=== PATIENT | female | born 1990 | race Asian ===

== ENCOUNTER 2024-04-23 14:08 | Emergency (ER) | payer OTHER, SELFPAY ==
[2024-04-23 14:11] VITALS: BP 109/75
[2024-04-23 14:33] LABS: Urine Albumin Negative (Neg - Trace); Urine Bilirubin Negative (Negative); Urine Character Clear (Clear); Urine Color Yellow; Urine Glucose Negative (Negative); Urine Ketone Negative (Negative); Urine Leukocyte Negative (Negative); Urine Nitrite Negative (Negative); Urine Occult Blood Negative (Negative); Urine Urobilinogen Negative (Neg - 1+)
[2024-04-23 14:41] LABS: Hematocrit 33.7 % (37.0-47.0); Hemoglobin 10.8 g/dL (12.0-16.0); Mean Corpuscular Hgb 25.1 pg (27.0-31.0); Mean Corpuscular Volume 78.2 fL (81.0-99.0); Mean Platelet Volume 11.3 fL (7.4-10.4); Platelet Count 234 10^3/uL (130-400); Red Blood Cell Count 4.31 10^6/uL (4.20-5.40); Red Cell Dist. Width 17.2 % (11.5-14.5); White Blood Cell Count 8.7 10^3/uL (4.8-10.8)
[2024-04-23 14:44] LABS: HCG, Serum Qualitative Screen Negative
[2024-04-23 14:58] LABS: Eosinophils 1 % (0-6); Lymphocytes 43 % (20-51); Monocytes 7 % (2-9); Segmented Neutrophils 36 % (42-75)
[2024-04-23 14:59] LABS: Atypical Lymphocytes 13 %; Normal RBC Morphology Yes; Platelets Checked Yes; Total Cells Counted 100
[2024-04-23 15:03] LABS: ALT (SGPT) 61 U/L (0-35); AST (SGOT) 79 U/L (14-36); Albumin 4.1 g/dl (3.5-5.0); Alkaline Phosphatase 76 U/L (38-126); Blood Urea Nitrogen 6 mg/dl (7-17); Calcium 9.9 mg/dl (8.4-10.2); Carbon Dioxide 26 mmol/L (22-30); Chloride 104 mmol/L (98-107); Glucose 130 mg/dl (70-99); Potassium 4.1 mmol/L (3.5-5.1); Sodium 137 mmol/L (135-145); Total Bilirubin 0.6 mg/dl (0.2-1.3); Total Protein 7.5 g/dl (6.3-8.2); eGFR > 60.00
--- NOTE | 2024-04-23 16:07 | ED.GENMED ---
History of Present Illness
<Kalyn Parker PA-C - Last Filed: 04/23/24 21:34>
General
Chief Complaint: Weakness
Source: patient
Time Seen by Provider: 04/23/24 15:46
History of Present Illness
History of Present Illness:
33yoF with a history of anemia presenting for evaluation of multiple complaints. Patient reports ongoing headaches x 6 weeks. She has a history of headaches but it does not typically last this long. Additionally, patient reports lightheadedness and
shortness of breath primarily with exertion. She is very fatigued despite sleeping 10 hours a night. She also states that her heart seems to race with activity and her heart rate can go up to the 110s with minimal exertion. Patient has been seen
by her PCP for these symptoms. She was sent for lab work last week and was told that her iron was low. She was referred to hematology for iron infusions but was unable to get an appointment until 5 weeks from now. Of note, patient recently
traveled to the [facility] about 2 weeks ago.
Past History
<Kalyn Parker PA-C - Last Filed: 04/23/24 21:34>
Past History
ED Past Medical History: Asthma and Other (Fertility treatment)
Social History
Tobacco: Non-smoker
Alcohol: None
Personal:
Living: with family
Phy Exam
<Kalyn Parker PA-C - Last Filed: 04/23/24 21:34>
General Physical Exam
General Presentation: well appearing and no apparent distress
General age: appears stated age
General Skin: warm and dry
General Habitus: normal
General Mental: alert
Cardiovascular Exam
Cardiovascular Exam: regular rate/rhythm, no edema and no murmur
Pulmonary Exam
Pulmonary Exam: lungs clear, no respiratory distress, no crackles and no wheezing
Jacky Coma Scale
Eye Opening: Spontaneous
Verbal Response: Oriented
Motor Response: Obeys Commands
GCS Total Score: 15
Skin Exam
Skin Exam: normal color and warm/dry
Psychiatric Exam
Psychiatric Exam: normal mood/affect
<Daniel Enrique DO - Last Filed: 04/23/24 21:23>
[place] Coma Scale
GCS Total Score: 15
Course
<Kalyn Parker PA-C - Last Filed: 04/23/24 21:34>
Orders/Labs/Results
Orders:
Orders
04/23/24 14:13
Test Result ONCE
04/23/24 14:17
Complete Blood Count/With Diff Urgent
Comprehensive Metabolic Panel Urgent
HCG, Serum Qualitative Screen Urgent
Comment: Notify provider if positive test present
Hepatitis A IgM Antibody Urgent
Comment: ADD ON
Hepatitis B Core Ab, IgM Urgent
Comment: ADD ON
Hepatitis B Surface Antibody Urgent
Comment: ADD ON
Hepatitis B Surface Antigen Urgent
Comment: ADD ON
Hepatitis C Antibody Urgent
Comment: ADD ON
Manual Differential Urgent
TSH Urgent
Comment: TSH ADDED ON BY FLOOR 4:18P 04-23-24
04/23/24 14:21
Urinalysis Reflex To Culture Urgent
Date Specimen was Collected: 04/23/24
Time Specimen was Collected: 14:13
04/23/24 16:06
Electrocardiogram (*1) Urgent
Reason for Study: Shortness of Breath
CT Head W/o Iv Contrast Urgent
Comment:
Reason For Exam: headaches x 6 weeks
EKG- Treatment ONCE
CR Chest - 2 Views Urgent
Comment:
Reason For Exam: SOB
04/23/24 16:16
D-Dimer Urgent
Troponin I Urgent
04/23/24 16:18
Add On- LAB Urgent
Comments:: sst in lab
Tests Added?: tsh reflex t4
04/23/24 16:37
Albuterol [ProAIR HFA INHALER] 2 puff INH R NOW STA
04/23/24 18:28
Lyme Progressive Urgent
Monotest Urgent
04/23/24 19:02
US Abdomen Complete/Upper Urgent
Comment:
Reason For Exam: Transaminitis
04/23/24 19:24
Add On- LAB Urgent
Tests Added?: hep. A IgM Antibody, hep. B Core Ab IgM, hep. B Surface Antibody
04/23/24 19:25
Add On- LAB Urgent
Tests Added?: Hep. B Surface Antigen, Hep. C. Antibody
04/23/24 21:19
Prednisone [Deltasone] 50 mg PO NOW STA
Abnormal Lab Results
04/23/24
14:17
Hgb 10.8 L g/dL
(12.0-16.0)
Hct 33.7 L %
(37.0-47.0)
MCV 78.2 L fL
(81.0-99.0)
MCH 25.1 L pg
(27.0-31.0)
MCHC 32.0 L g/dL
(33.0-37.0)
RDW 17.2 H %
(11.5-14.5)
MPV 11.3 H fL
(7.4-10.4)
Segmented Neutrophils 36 L %
(42-75)
BUN 6 L mg/dl
(7-17)
Glucose 130 H mg/dl
(70-99)
AST 79 H U/L
(14-36)
ALT 61 H U/L
(0-35)
04/23/24 14:17
04/23/24 14:17
Vital Signs
Initial and Last Documented VS:
Initial Vital Signs
Temp Pulse Resp BP Pulse Ox
98.1 F 88 18 109/75 98
04/23/24 14:11 04/23/24 14:11 04/23/24 14:11 04/23/24 14:11 04/23/24 14:11
Last Documented Vital Signs
Temp Pulse Resp BP Pulse Ox
98.1 F 77 16 111/68 98
04/23/24 14:11 04/23/24 21:18 04/23/24 21:18 04/23/24 21:18 04/23/24 21:18
<Daniel Enrique, DO - Last Filed: 04/23/24 21:23>
Orders/Labs/Results
Orders:
Orders
04/23/24 14:13
Test Result ONCE
04/23/24 14:17
Complete Blood Count/With Diff Urgent
Comprehensive Metabolic Panel Urgent
HCG, Serum Qualitative Screen Urgent
Comment: Notify provider if positive test present
Hepatitis A IgM Antibody Urgent
Comment: ADD ON
Hepatitis B Core Ab, IgM Urgent
Comment: ADD ON
Hepatitis B Surface Antibody Urgent
Comment: ADD ON
Hepatitis B Surface Antigen Urgent
Comment: ADD ON
Hepatitis C Antibody Urgent
Comment: ADD ON
Manual Differential Urgent
TSH Urgent
Comment: TSH ADDED ON BY FLOOR 4:18P 04-23-24
04/23/24 14:21
Urinalysis Reflex To Culture Urgent
Date Specimen was Collected: 04/23/24
Time Specimen was Collected: 14:13
04/23/24 16:06
Electrocardiogram (*1) Urgent
Reason for Study: Shortness of Breath
CT Head W/o Iv Contrast Urgent
Comment:
Reason For Exam: headaches x 6 weeks
EKG- Treatment ONCE
CR Chest - 2 Views Urgent
Comment:
Reason For Exam: SOB
04/23/24 16:16
D-Dimer Urgent
Troponin I Urgent
04/23/24 16:18
Add On- LAB Urgent
Comments:: sst in lab
Tests Added?: tsh reflex t4
04/23/24 16:37
Albuterol [ProAIR HFA INHALER] 2 puff INH R NOW STA
04/23/24 18:28
Lyme Progressive Urgent
Monotest Urgent
04/23/24 19:02
US Abdomen Complete/Upper Urgent
Comment:
Reason For Exam: Transaminitis
04/23/24 19:24
Add On- LAB Urgent
Tests Added?: hep. A IgM Antibody, hep. B Core Ab IgM, hep. B Surface Antibody
04/23/24 19:25
Add On- LAB Urgent
Tests Added?: Hep. B Surface Antigen, Hep. C. Antibody
04/23/24 21:19
Prednisone [Deltasone] 50 mg PO NOW STA
Abnormal Lab Results
04/23/24
14:17
Hgb 10.8 L g/dL
(12.0-16.0)
Hct 33.7 L %
(37.0-47.0)
MCV 78.2 L fL
(81.0-99.0)
MCH 25.1 L pg
(27.0-31.0)
MCHC 32.0 L g/dL
(33.0-37.0)
RDW 17.2 H %
(11.5-14.5)
MPV 11.3 H fL
(7.4-10.4)
Segmented Neutrophils 36 L %
(42-75)
BUN 6 L mg/dl
(7-17)
Glucose 130 H mg/dl
(70-99)
AST 79 H U/L
(14-36)
ALT 61 H U/L
(0-35)
04/23/24 14:17
04/23/24 14:17
Vital Signs
Initial and Last Documented VS:
Initial Vital Signs
Temp Pulse Resp BP Pulse Ox
98.1 F 88 18 109/75 98
04/23/24 14:11 04/23/24 14:11 04/23/24 14:11 04/23/24 14:11 04/23/24 14:11
Last Documented Vital Signs
Temp Pulse Resp BP Pulse Ox
98.1 F 77 16 111/68 98
04/23/24 14:11 04/23/24 21:18 04/23/24 21:18 04/23/24 21:18 04/23/24 21:18
<Kalyn Parker PA-C - Last Filed: 04/23/24 21:34>
MDM/Problems Addressed
Differential Diagnosis Includes:
33yoF here with multiple symptoms including headaches x 6 weeks, fatigue, exertional dyspnea, and palpitations. Recently diagnosed with iron deficiency by her PCP. She is afebrile and hemodynamically stable. She is well appearing in no distress.
Exam is reassuring. Differential diagnosis includes but is not limited to: anemia, thyroid dysfunction, electrolyte abnormality, arrhythmia, PE, pneumonia, anxiety
Initial ED plan: Check cardiac labs, D-dimer, TSH, EKG, CXR, and CT head.
<Kalyn Parker PA-C - Last Filed: 04/23/24 21:34>
*EKG
Interpreted by ED Provider?: Yes
EKG Intrepretation Date: 04/23/24
Heart Rate: 93
Rate: normal
Rhythm: sinus
[place]: normal axis
Interval: normal interval
QRS Pattern: normal QRS
Ischemia: no ischemia
*Critical Care Note
Total Time (30-74mins, 75-104mins- exclusive of procedures): Not Applicable
<Kalyn Parker PA-C - Last Filed: 04/23/24 21:34>
Update Note
Update Note:
Labs reveal a mild transaminitis of unclear significance. Hemoglobin is 10.8 and MCV is mildly low. No indication for IV iron infusion or blood transfusion. Remainder of labs unremarkable. D-dimer normal making PE very unlikely. EKG shows normal
sinus rhythm without ischemic changes and troponin is normal. Chest x-ray clear. CT head is negative for acute findings. Unclear etiology of symptoms. Lyme testing, monospot, hepatitis panel, and liver ultrasound added. Patient signed out to
[facility] awaiting ultrasound results.
ED Attending Note
<Kalyn Parker PA-C - Last Filed: 04/23/24 21:34>
-
Portions of this chart may have been created with voice recognition software.� Occasional wrong word or��sound alike� substitutions may have occurred due to the inherent limitations of voice recognition software.
<Daniel Enrique DO - Last Filed: 04/23/24 21:23>
ED Attending Note
Patient seen and examined by attending physician: Yes
I performed the substantive portion of visit, reviewed & personally made and approve the management plan that is documented in note by myself or ASIA.: Yes
ED Attending Note:
Patient is a 33-year-old female who presents to the emergency ferment on the recommendation of her doctor for transfusion and iron infusion because of his severe anemia. Patient has had headaches for the past 5 to 6 weeks. Patient awakes with the
headaches. They are generalized. Patient is felt lightheaded and weak. Patient is extremely fatigued. Patient states she is sleeping 10 hours a night. Patient has no appetite. Patient complains of exertional shortness of breath, palpitations
and generalized chest discomfort with any exertion. Patient states she has difficulty staying awake. Patient has felt lightheaded. Patient's doctor told her not to drive. Patient denies fever or chills. Patient does have a 3-year-old daughter.
Patient showed me her labs and her iron and TIBC as well as ferritin are not low however the iron saturation is low. Patient has no vitamin B12 and folate deficiency. Patient is on oral iron. Patient denies any travel history, joint pain or
rashes. Patient's workup is unremarkable given her anemia workup. Patient does not need iron infusions or transfusion. Patient's liver enzymes are mildly elevated. Patient denies any abdominal pain or signs of hepatitis. Patient had IVF with
hormonal manipulation in the past but nothing recently. On physical exam patient is neurologically intact. Heart is regular lungs are clear. Abdomen soft nontender. Neck is supple. Patient has no palpable tenderness about the scalp. Patient
has no history of trauma. Head CAT scan as well as chest x-ray unremarkable. The abdominal ultrasound is normal for slight coarsening of hepatic echotexture which could be a nonspecific finding for the possibility of hepatocellular disease. At
this point we have encouraged the patient to continue their iron. Will give a short trial of steroids. This does not seem to be migraine. Patient should continue the iron that she was given. Patient showed me the text from her doctor that said
she had a severe anemia and need to go to the emergency department immediately I do not see evidence of that and I said this to the patient. I explained why I felt that way especially after reviewing her most recent lab studies with the iron, TIBC,
iron saturation as well as ferritin. Patient's sed rate was elevated to 60. Unsure of the etiology of that, the headaches are the elevated LFTs. Patient will need further workup.
Discharge Plan
Departure
Patient Disposition: Home (Routine Discharge)
Date of Disposition: 04/23/24
Time of Disposition: 21:10
Patient with high blood pressure during this ER visit?: No
Condition: Fair
Covid-19: Not Applicable
Discharge Problem:
Headache, Iron deficiency anemia, LFT elevation
Instructions: Generalized Weakness (DC), Headache, Adult ED
Prescriptions:
New
prednisone 20 mg tablet
20 mg PO BID Qty: 14 0RF
Referrals:
Grayson Herrera, DO [Active] - Call in 1-3 days for appt
Lorenzo Gallo MD [Family Provider] - Follow up in 2-3 days
Zack Bazan MD [Active] - Call in 1-3 days for appt
Stand Alone Forms: Return to Work
Activity Restrictions/Additional Instructions:
Use acetaminophen 650 mg to 1000 mg every 6 hours for discomfort. Make sure to take your iron. Call the neurologist and the log carrier operator above for appointments.
Have a HAPPY BIRTHDAY!!!!
Interventions
Interventions:
*Risk Screen - Suicide Last Done: 04/23/24 14:11
*General Assessment Last Done: 04/23/24 14:11
*Neglect/Abuse Screening Last Done: 04/23/24 14:11
ED- Fall Risk Assessment Last Done: 04/23/24 20:05
*ED COVID-19 Vaccine History Last Done: 04/23/24 14:11
ED- Cardiac Assessment Last Done: 04/23/24 16:15
ED- Neurological Assessment Last Done: 04/23/24 16:15
ED- Pulmonary Assessment Last Done: 04/23/24 16:15
Discharge Date and Time
Print Language: EMIRATI
[2024-04-23 16:16] VITALS: BMI 22.6
[2024-04-23 16:41] LABS: D-Dimer 0.39 ug/mlFEU (0.00-0.50)
[2024-04-23 16:51] LABS: Troponin I < 0.012 ng/ml
[2024-04-23 17:04] VITALS: BP 100/63
[2024-04-23] MEDS: ProAIR HFA INHALER 2 PUFF INH (17:05)
[2024-04-23 17:39] LABS: TSH 1.43 uIU/ml (0.47-4.68)
[2024-04-23 18:00] VITALS: BP 122/83
--- NOTE | 2024-04-23 18:34 | EDRN ---
When RN entered pt.'s room, pt. extremely upset and tearful, stating, 'my primary doctor sent me here, and then the ER PA is now telling me I need to see my primary. I feel like I am getting ping ponged around and I am frustrated.'. RN sat and spoke
w/ pt., ensured pt. that her workup here was not emergent, yet addressed pt.'s concerns of frustrations and explained to pt. that RN would speak w/ PA and physician about pt.'s concerns. Additional labwork completed at this time, pt. less tearful,
appreciative that MD will be coming to speak w/ her.
[2024-04-23 18:56] LABS: Monotest Negative (Negative)
[2024-04-23 21:18] VITALS: BP 111/68
[2024-04-23] MEDS: DELTASONE 50 MG PO (21:34)
[2024-04-24 14:36] LABS: Lyme Antibody Screen, EIA Negative (Negative)
[2024-04-24 18:40] LABS: Hepatitis B Surface Antigen Negative (Negative)
[2024-04-24 18:57] LABS: Hepatitis B Surface Antibody Positive; Hepatitis C Antibody Negative (Negative)
[2024-04-24 19:47] LABS: Hepatitis A IgM Antibody Negative (Negative); Hepatitis B Core Ab, IgM Negative (Negative)
== END 2024-04-23 21:51 | disposition home or self-care (01) ==
LOC: EMR 14:08
PROVIDERS: Physician Assistant; EMERGENCY PHYSICIAN Emergency Medicine; FAMILY PHYSICIAN Internal Medicine
DX: D50.9 Iron deficiency anemia, unspecified (principal); R51.9 Headache, unspecified; R42 Dizziness and giddiness; R06.02 Shortness of breath; R53.83 Other fatigue; R53.1 Weakness; R79.89 Other specified abnormal findings of blood chemistry; I49.9 Cardiac arrhythmia, unspecified; J45.909 Unspecified asthma, uncomplicated; Z88.1 Allergy status to other antibiotic agents
CPT/HCPCS: 99285; 94640; 70450; 71046; 76700; 80053; 81003; 84443; 84484; 84703; 85025; 85379; 86308; 86618; 86705; 86706; 86709; 86803; 87340; 93005

== ENCOUNTER 2025-02-11 20:21 | Emergency (ER) | payer OTHER, SELFPAY ==
[2025-02-11 20:25] VITALS: BP 113/79
[2025-02-11 20:49] LABS: % Basophils 0.4 % (0-2); % Eosinophils 1.3 % (0-6); % Immature Granulocytes 0.2 % (0-0.5); % Lymphocytes 32.1 % (20.5-51.1); % Monocytes 6.4 % (1.7-9.3); % Neutrophils 59.6 % (42.2-75.2); Absolute Eosinophils 0.1 10^3/uL (0-0.7); Absolute Lymphocytes 3.4 10^3/uL (1.2-3.4); Absolute Monocytes 0.7 10^3/uL (0.1-0.6); Absolute Neutrophils 6.2 10^3/uL (1.4-6.5); Hematocrit 36.1 % (37.0-47.0); Hemoglobin 12.6 g/dL (12.0-16.0); Mean Corp Hgb Conc. 34.9 g/dL (33.0-37.0); Mean Corpuscular Hgb 29.2 pg (27.0-31.0); Mean Corpuscular Volume 83.8 fL (81.0-99.0); Mean Platelet Volume 12.3 fL (7.4-10.4); Nucleated Red Blood Cells % 0 %; Platelet Count 225 10^3/uL (130-400); Red Blood Cell Count 4.31 10^6/uL (4.20-5.40); Red Cell Dist. Width 13.7 % (11.5-14.5); White Blood Cell Count 10.5 10^3/uL (4.8-10.8)
[2025-02-11 21:00] LABS: HCG, Serum Qualitative Screen Negative
[2025-02-11 21:04] LABS: ALT (SGPT) 25 U/L (0-35); AST (SGOT) 26 U/L (14-36); Albumin 4.5 g/dl (3.5-5.0); Alkaline Phosphatase 60 U/L (38-126); Blood Urea Nitrogen 9 mg/dl (7-17); Carbon Dioxide 24 mmol/L (22-30); Chloride 110 mmol/L (98-107); Glucose 92 mg/dl (70-99); Potassium 4.4 mmol/L (3.5-5.1); Sodium 141 mmol/L (135-145); Total Bilirubin 0.4 mg/dl (0.2-1.3); Total Protein 7.9 g/dl (6.3-8.2); eGFR > 60.00
[2025-02-11 21:12] LABS: Troponin I < 0.012 ng/ml
--- NOTE | 2025-02-11 21:45 | ED.GENMED ---
History of Present Illness
General
Chief Complaint: Back Pain
Source: patient and records
Exam Limitations: none
Time Seen by Provider: 02/11/25 21:38
History of Present Illness
History of Present Illness:
34yoF with no significant past medical history presenting for evaluation of left upper back pain. Symptoms have been ongoing for about a week. She denies any trauma. Pain radiates to the left chest. Pain is worse with movement of the left arm as
well as breathing. She also reports feeling short of breath. She was in the hot tub tonight and started to feel worsening dyspnea which prompted her to come to the ED. She has not taken anything [id number] for her symptoms. She denies any
fevers, cough, vomiting, calf pain, leg swelling. No recent travel or tobacco use.
Past History
Past History
ED Past Medical History: Asthma and Other (Fertility treatment)
Social History
Tobacco: Non-smoker
Alcohol: None
Personal:
Living: with family
Phy Exam
General Physical Exam
General Presentation: well appearing and no apparent distress
General Skin: warm and dry
General Habitus: normal
General Mental: alert
ENT Exam
ENT Exam: normocephalic
Cardiovascular Exam
Cardiovascular Exam: regular rate/rhythm, no edema and no murmur
Pulmonary Exam
Pulmonary Exam: lungs clear, no respiratory distress, no rales, no crackles, no rhonchi and no wheezing
Neurological Exam
Neurological Exam: alert
Jacky Coma Scale
Eye Opening: Spontaneous
Verbal Response: Oriented
Motor Response: Obeys Commands
GCS Total Score: 15
Musculoskeletal Exam
Musculoskeletal Exam: other (+reproducible tenderness L upper back. No skin changes.)
Skin Exam
Skin Exam: normal color and warm/dry
Psychiatric Exam
Psychiatric Exam: normal mood/affect
Course
Orders/Labs/Results
Orders:
Orders
02/11/25 20:28
Electrocardiogram (*1) Urgent
Reason for Study: Other
Other Reason for Exam: Respiratory Distress
EKG- Treatment ONCE
CR Chest - 2 Views Urgent
Comment:
Reason For Exam: respiratory distress
02/11/25 20:29
Test Result ONCE
02/11/25 20:42
Complete Blood Count/With Diff Urgent
Comprehensive Metabolic Panel Urgent
Erythrocyte Sed Rate Urgent
Comment: ADDON
HCG, Serum Qualitative Screen Urgent
Comment: Notify provider if positive test present
Troponin I Urgent
02/11/25 21:56
Ketorolac [Toradol] 15 mg IV NOW STA
02/11/25 21:57
Add On- LAB Urgent
Tests Added?: ESR
02/11/25 22:03
D-Dimer Urgent
Abnormal Lab Results
02/11/25
20:42
Hct 36.1 L %
(37.0-47.0)
MPV 12.3 H fL
(7.4-10.4)
Absolute Monos (auto) 0.7 H 10^3/uL
(0.1-0.6)
ESR 66 H mm/hour
(0-20)
Chloride 110 H mmol/L
(98-107)
02/11/25 20:42
02/11/25 20:42
Vital Signs
Initial and Last Documented VS:
Initial Vital Signs
Temp Pulse Resp BP Pulse Ox
98.5 F 89 16 113/79 98
02/11/25 20:25 02/11/25 20:25 02/11/25 20:25 02/11/25 20:25 02/11/25 20:25
Last Documented Vital Signs
Temp Pulse Resp BP Pulse Ox
98.5 F 89 16 113/79 98
02/11/25 20:25 02/11/25 20:25 02/11/25 20:25 02/11/25 20:25 02/11/25 20:25
MDM/Problems Addressed
Differential Diagnosis Includes:
34yoF here with L upper back pain and chest pain x 1 week. Worse with movement and breathing. Also c/o SOB. VSS and oxygen saturation 98% on room air. There is reproducible tenderness on exam. Differential diagnosis includes but is not limited to:
Musculoskeletal pain, pleurisy, pneumonia, pneumothorax, PE, doubt ACS
Initial ED plan: Labs obtained in triage which are overall unremarkable. EKG shows normal sinus rhythm without ischemic changes and troponin within normal limits. Will add on D-dimer and chest x-ray. IV Toradol for pain.
*EKG
Interpreted by ED Provider?: Yes
EKG Intrepretation Date: 02/11/25
Heart Rate: 85
Rate: normal
Rhythm: sinus
[place]: normal axis
Interval: normal interval
QRS Pattern: normal QRS
Ischemia: no ischemia
*Critical Care Note
Total Time (30-74mins, 75-104mins- exclusive of procedures): Not Applicable
Update Note
Update Note:
D-dimer normal making PE very unlikely. Chest x-ray appears normal per my interpretation. Suspect musculoskeletal pain. Pain has improved with Toradol although patient states she is unhappy with her care. Patient upset regarding wait time, that
her call de guzman was not answered in a timely fashion, and that she was not offered any water. Patient left ED without discharge papers.
ED Attending Note
-
Portions of this chart may have been created with voice recognition software.� Occasional wrong word or��sound alike� substitutions may have occurred due to the inherent limitations of voice recognition software.
Discharge Plan
Departure
Patient Disposition: Home (Routine Discharge)
Date of Disposition: 02/11/25
Time of Disposition: 23:56
Patient with high blood pressure during this ER visit?: No
Discharge Problem:
Upper back pain on left side, Musculoskeletal chest pain
Instructions: Upper Back Pain (DC)
Prescriptions:
No Action
prednisone 20 mg tablet
20 mg PO BID Qty: 14 0RF
Referrals:
Lorenzo Gallo MD [Family Provider, Internal Medicine]
Activity Restrictions/Additional Instructions:
Apply heat to affected area. Take Tylenol and ibuprofen as needed for pain.
Please follow-up with your family doctor. Return to the ER with any new or worsening symptoms.
Interventions
Interventions:
*Risk Screen - Suicide Last Done: 02/11/25 20:25
*General Assessment Last Done: 02/11/25 21:38
*Neglect/Abuse Screening Last Done: 02/11/25 20:25
*ED- Fall Risk Assessment Last Done: 02/11/25 21:38
*ED COVID-19 Vaccine History Last Done: 02/11/25 21:38
*Nursing Disposition Last Done: 02/12/25 00:01
ED-Musculoskeletal Assessment Last Done: 02/11/25 21:38
Discharge Date and Time
Discharge Date/Time: 02/12/25 00:03
Print Language: URDU
[2025-02-11] MEDS: TORADOL 15 MG IV (22:10)
[2025-02-11 22:11] LABS: Erythrocyte Sed Rate 66 mm/hour (0-20)
[2025-02-11 22:37] LABS: D-Dimer 0.29 ug/mlFEU (0.00-0.50)
== END 2025-02-12 00:03 | disposition home or self-care (01) ==
LOC: EMR 20:21
PROVIDERS: Emergency Medicine; Physician Assistant; EMERGENCY PHYSICIAN Emergency Medicine; FAMILY PHYSICIAN Internal Medicine
DX: R07.89 Other chest pain (principal); M54.6 Pain in thoracic spine; J45.909 Unspecified asthma, uncomplicated
CPT/HCPCS: 99285; 96374; 71046; 80053; 84484; 84703; 85025; 85379; 85652; 93005